=== PATIENT | male | born 1995 | race Caucasian/White ===

== ENCOUNTER → 2018-11-14 09:21 | Outpatient (CLI) | payer OTHER, SELFPAY ==
[2018-11-13 17:23] VITALS: BMI 22.1
--- NOTE | 2018-11-14 09:34 | RAD_ITS ---
STUDY: X-RAY - LEFT HAND REASON FOR EXAM: Male, 23 years old. Pain following a fall. TECHNIQUE: 3 view(s) of the hand. COMPARISON: None. FINDINGS: Normal radiocarpal articulation. Normal distal radioulnar joint. Normal visualized carpal bones. Normal carpal articulations Normal carpometacarpal articulation of the thumb. Normal second through fifth carpometacarpal joints. Normal metacarpi. Normal metacarpophalangeal joint of the thumb. Normal interphalangeal joint of the thumb. Normal proximal and distal phalanges of the thumb. Normal metacarpophalangeal joints of the second through fifth fingers. Normal proximal and distal interphalangeal joints of the second through fifth fingers. Normal phalanges of the second through fifth fingers. The soft tissue structures are unremarkable. RAD/Hand Min 3 Views IMPRESSION: Normal x-ray examination of the hand. Electronically Signed: Chase Monte, at 10:06 EDT , Service support ,
== END ==
PROVIDERS: Visit Provider Physician Assistant Surgical
DX: S63.502A Unspecified sprain of left wrist, initial encounter (principal)
CPT/HCPCS: 73130

== ENCOUNTER → 2021-01-20 12:39 | Outpatient (CLI) | payer OTHER, SELFPAY ==
[2021-01-20 14:47] LABS: HIV - WCH Non-Reactive (Nonreactive); Syphilis Antibodies Non-reactive
== END ==
PROVIDERS: Visit Provider Internal Medicine Infectious Disease
DX: Z72.51 High risk heterosexual behavior (principal)
CPT/HCPCS: 36415; 86703; 86705; 86707; 86780; 86803; 86804; 87340; 87350